=== PATIENT | male | born 1965 | race Caucasian/White ===

== ENCOUNTER 2018-08-21 08:17 | Emergency (ER) | payer BC, SELFPAY ==
[2018-08-21 08:20] VITALS: BP 157/90; PULSE 70; RESP 16; TEMP 36.9; O2SAT 97; BMI 23.8
--- NOTE | 2018-08-21 08:34 | CT_ITS ---
STUDY: CT SOFT TISSUE NECK WITHOUT CONTRAST REASON FOR EXAM: Male, 52 years old. Dysphagia. Possible ingestion of foreign body. RADIATION DOSAGE (If Supplied By Facility): CTDIvol = ( 19.67 ) mGy, DLP = ( 618.81 ) mGycm TECHNIQUE: The patient was scanned in a multi-detector CT scanner. High resolution transaxial imaging was performed without the administration of intravenous contrast material. Sagittal and coronal images were reconstructed. Individualized dose optimization techniques were used for this CT. COMPARISON: None. FINDINGS: Normal bilateral parotid glands. Normal bilateral header up spaces. Normal bilateral parapharyngeal spaces. Normal bilateral carotid spaces. Normal bilateral sublingual and submandibular glands and spaces. Normal visualized nasopharynx. Normal retropharyngeal space. Normal perivertebral space. Tiny radiopacities are seen in the region of the left faucial tonsils. The visualized tongue, tongue base and oropharynx are normal. The visualized cervical lymph nodes (levels I-) are within normal size limits, and maintain normal morphology. There is no demonstrated solid or cystic mass lesion. Normal epiglottis, bilateral vallecula and hypopharynx. The pre-epiglottic and paraglottic adipose spaces are normal. Asymmetrical thickening of the right aryepiglottic fold. An underlying mass lesion should be ruled out. Normal subglottic trachea. Normal bilateral lobes of the thyroid gland. Normal visualized pulmonary apices. Normal visualized paranasal sinuses. There is degenerative changes of the cervical spine. CT/Soft Tissue Neck without Contr IMPRESSION: Tiny radiopacities are seen in the left tonsils. Foreign body should be ruled out. Asymmetry of the right aryepiglottic fold. Underlying mass lesion should be ruled out. Electronically Signed: Ronny Stewart, at 9:07 EDT , Service support ,
--- NOTE | 2018-08-21 08:56 | ED.VISSUMM ---
- ER Visit Summary Date of Service: 08/21/18 Chief Complaint: Foreign body in the throat History of Present Illness: The patient is a [address] Ag. He reports that he ate beef stroganoff 2 days ago and feels as though it got stuck in his throat. Yesterday he was coughing and a noodle and beef came out. He still feels as though it is something there. Reports he has pain when he eats, drinks, or even swallows his saliva that is 10 out of 10 in severity. 4 out of 10 at rest. He describes the pain as sharp. No fever, chills, chest pain. Does report that he did feel mildly short of breath when he laid down last night to sleep. Physical Examination: Vitals: Stable. Afebrile. General: Well-nourished and well-developed. Head: Normocephalic atraumatic. HEENT: Pharyngeal erythema. No tonsillar exudate or enlargement. He does have a mildly swollen uvula. No pain with movement of his trachea. Neck: Supple, no lymphadenopathy. No JVD. Nontender. Cardiovascular: Regular rate and rhythm. No murmurs. Respiratory: No respiratory distress. Clear to auscultation bilaterally. Abdominal: Soft, nontender, nondistended, normal bowel sounds. No guarding, rebound, or peritoneal signs. Back: Nontender. Extremities: Nontender, no edema. Skin: Normal color, no rash. Neurologic: Alert and oriented ?3. Cranial nerves II through XII are intact. Normal strength and sensation. Psych: Normal affect. Test Results: Clinical Impression(s) from Imaging Studies Soft Tissue Neck CT 08/21/18 08:34 IMPRESSION: Tiny radiopacities are seen in the left tonsils. Foreign body should be ruled out. Asymmetry of the right aryepiglottic fold. Underlying mass lesion should be ruled out. Electronically Signed: Ronny Stewart, at 9:07 EDT , Service support , Emergency Department Course and Treatment: Patient is stable and resting comfortably. Treatment Plan: The patient was discussed with Dr. Michael. He states that in a neurologically intact patient that it is unlikely that this is food. He reports that it is most likely due to GERD or a mass. He will see him in the office tomorrow to perform endoscopy for further evaluation of this. This was discussed the patient and he is happy with this plan. Return to the emergency department for any worsening symptoms. Disposition: To home in improved and stable condition. Impression: 1. Pharyngeal pain. This note was generated with [employer] dictation software. It may contain incorrect words, spelling, and punctuation that were not noted in review of the chart prior to signing ED Disposition - Plan for ED Patient: Instructions: ED Abrasion Pharyngeal Referrals: Baltazar Michael MD [STAFF PHYSICIAN] - 1 Day for another exam
--- NOTE | 2018-08-21 09:00 | ED.DCSUM_ITS ---
- ER Visit Summary Date of Service: 08/21/18 Chief Complaint: Foreign body in the throat History of Present Illness: The patient is a [address] Ag. He reports that he ate beef stroganoff 2 days ago and feels as though it got stuck in his throat. Yesterday he was coughing and a noodle and beef came out. He still feels as though it is something there. Reports he has pain when he eats, drinks, or even swallows his saliva that is 10 out of 10 in severity. 4 out of 10 at rest. He describes the pain as sharp. No fever, chills, chest pain. Does report that he did feel mildly short of breath when he laid down last night to sleep. Physical Examination: Vitals: Stable. Afebrile. General: Well-nourished and well-developed. Head: Normocephalic atraumatic. HEENT: Pharyngeal erythema. No tonsillar exudate or enlargement. He does have a mildly swollen uvula. No pain with movement of his trachea. Neck: Supple, no lymphadenopathy. No JVD. Nontender. Cardiovascular: Regular rate and rhythm. No murmurs. Respiratory: No respiratory distress. Clear to auscultation bilaterally. Abdominal: Soft, nontender, nondistended, normal bowel sounds. No guarding, rebound, or peritoneal signs. Back: Nontender. Extremities: Nontender, no edema. Skin: Normal color, no rash. Neurologic: Alert and oriented ?3. Cranial nerves II through XII are intact. Normal strength and sensation. Psych: Normal affect. Test Results: Clinical Impression(s) from Imaging Studies Soft Tissue Neck CT 08/21/18 08:34 IMPRESSION: Tiny radiopacities are seen in the left tonsils. Foreign body should be ruled out. Asymmetry of the right aryepiglottic fold. Underlying mass lesion should be ruled out. Electronically Signed: Ronny Stewart, at 9:07 EDT , Service support , Emergency Department Course and Treatment: Patient is stable and resting comfortably. Treatment Plan: The patient was discussed with Dr. Michael. He states that in a neurologically intact patient that it is unlikely that this is food. He reports that it is most likely due to GERD or a mass. He will see him in the office tomorrow to perform endoscopy for further evaluation of this. This was discussed the patient and he is happy with this plan. Return to the emergency department for any worsening symptoms. Disposition: To home in improved and stable condition. Impression: 1. Pharyngeal pain. This note was generated with [employer] dictation software. It may contain incorrect words, spelling, and punctuation that were not noted in review of the chart prior to signing ED Disposition - Plan for ED Patient: Instructions: ED Abrasion Pharyngeal Referrals: Baltazar Michael MD [STAFF PHYSICIAN] - 1 Day for another exam
[2018-08-21 10:05] VITALS: BP 121/74; PULSE 62; RESP 15; O2SAT 98
== END 2018-08-21 10:06 | disposition home or self-care (01) ==
LOC: ED 09:03
PROVIDERS: Emergency Provider Emergency Medicine
DX: J02.9 Acute pharyngitis, unspecified (principal); R06.00 Dyspnea, unspecified; F17.200 Nicotine dependence, unspecified, uncomplicated
CPT/HCPCS: 70490; 99282